=== PATIENT | male | born 1970 | race Caucasian/White ===

== ENCOUNTER 2022-06-05 17:35 | Emergency (ER) | payer MEDICAID, SELFPAY ==
[2022-06-05 17:36] VITALS: BP 166/101; PULSE 99; RESP 14; TEMP 36.8; O2SAT 98; BMI 35.0
--- NOTE | 2022-06-05 18:03 | EDS_ITS ---
HPI History of Present Illness Chief Complaint: Lower Extremity Injury Detail of Chief Complaint: Atraumatic right and left great toe pain Informant: patient Occured/Mechanism Comment: Patient was diagnosed with gout. He had an intra-articular injection of his MTP joint by podiatry. He was seen on Thursday. Onset/Context/Timing Onset: Today (Left toe) and Days (Right toe) Timing: Continuous Quality of Pain: Dull, Aching and Throbbing Location: MTP joint right and left great toe Current Severity: Moderate Maximum Severity: Severe Worsened by: Putting on his shoe, walking, movement Relieved by: Nothing Associated Symptoms Associated Symptoms: Negative for Parasthesia, Weakness or Loss of Funtion Narrative Narrative: Patient is a 52-year-old male who presents with increased right great toe pain and new onset left great toe pain. He was diagnosed earlier this week with gout. He denies history of diabetes however his last A1c was 7.3. Review of prior records indicates he has diabetes with elevated blood sugar. He denies fever, chills night sweats. He is not on a thiazide diuretic. Patient states he wishes to treat his diabetes by diet control. Tetanus Immunization: 5-10 years Prior similar symptoms: Yes Recent Illness/Hospitalization: Yes PFSH PFSH Home Medications prednisone 20 mg tablet 60 mg PO DAILY #15 TABLETS 06/05/22 [Rx Last Taken U nknown] Allergy/AdvReac Type Severity Reaction Status Date / Time No Known Allergies Allergy Verified 06/05/22 17:36 Social History (Updated 06/05/22 @ 18:[address] Molina Underwood MD) household members: none Smoking Status: Never smoker substance use type: does not use ROS ROS ED Constitutional Constitutional ED: Denies chills, fever(s), subjective, sweats or weight loss Musculoskeletal Musculoskeletal: Reports other Details: Right and left great toe pain ; Denies arthralgias, back pain, myalgias or neck pain Integumentary Denies abscess, Abrasions or rash Neurologic Neurologic: Denies paresthesias or weakness Hematologic/Lymphatic Hematologic/Lymphatic: Denies easy bleeding or easy bruising EXAM Physical Exam Const Vital Signs: 06/05/22 17:36 Temperature 98.2 F Temperature Source Temporal Pulse Rate 99 Respiratory Rate 14 Blood Pressure 166/101 H Blood Pressure Mean 122 Pulse Ox 98 Oxygen Delivery Method Room Air Positive well nourished, well developed, obese and unkempt General Appearance ED: unkempt and well developed; Negative for NAD Nutritional Appearance: obese HEENT Reports moist mucous membranes normocephalic and atraumatic Eyes PERRL Eyes Narrative: Extract muscle intact. Sclera is anicteric. Neck full ROM and supple Resp normal respiratory effort Cardio regular rate and regular rhythm Extremity Negative for normal to inspection Extremity Narrative: There is redness and swelling of the right and left great toe consistent with gout. There is hair on his toes. Capillary fill is normal. DP and PT pulse are palpable. He has no hyperesthesia. Neuro oriented x3, CN's II-XII intact bilaterally, moves all extremities and no se nsory deficits noted Sensorium / Orientation: alert Motor Exam: strength 5/5 throughout Psych mental status grossly normal Appearance: unkempt Skin no wounds Lesions: no lesions MDM MDM MDM Narrative Medical decision making narrative: Patient's history and physical exam is consistent with gout. He has pain with passive range of motion. He has pain to light touch. Since renal function is normal he was treated with IV Toradol and morphine. He was reassessed at 1824. He reports marked improvement. He was discharged to home with prescription for prednisone. Discharge Plan Triage Chief Complaint: Lower Extremity Injury ED Provider: Molina Underwood Dx/Rx/DC Orders Clinical Impression: Gouty arthritis of right great toe, Gouty arthritis of left great toe Instructions: ED Gout, ED Hyperglycemia New Susp Diabetes, ED Gout Diet Prescriptions: New prednisone 20 mg tablet 60 mg PO DAILY Qty: 15 0RF Primary Care Provider: Care Physician,No Primary Referrals: Care Physician,No Primary [Primary Care Provider] - Activity Restrictions/Additional Instructions: 1. Follow-up with your primary care doctor. You will need further testing and treatment for your elevated blood sugar
[2022-06-05] MEDS: Morphine 4 MG/ML Syringe IV (18:18)
[2022-06-05] MEDS: Ketorolac 15 MG/ML Vial IV (18:19)
--- NOTE | 2022-06-05 18:25 | EDS_ITS ---
HPI History of Present Illness Chief Complaint: Lower Extremity Injury Detail of Chief Complaint: Back pain radiating down posterior left leg Informant: patient Onset/Context/Timing Onset: Days (Onset 4 to 5 days ago) Context: Sudden Onset Injury: lifting, twisting, bending, direct trauma, assault and repetitive motion Timing: Continuous and Waxes and wanes Quality: Dull and Aching Location: Lumbar, Buttock and Left Leg Current Severity: Moderate Maximum Severity: Severe Worsened by: improves with Movement, Ambulation, Bending and Lifting; worse with Night time pain Relieved by: Nothing Associated Symptoms Associated Symptoms: Radiation to Left Leg and - (He denies saddle paresthesia or anesthesia. He denies foot drop. He denies buckling of his knees going up or down the 2 steps to get into his residence.); Negative for Numbness, Tingling, Radiation to Right Leg, Fever, Abdominal Pain, Dysuria, Unable to Ambulate, Unable to Transfer, Urinary Retention, Urinary Incontinence, Constipation or Fecal Incontinence Narrative Narrative: Patient is a 52-year-old male who presents with left lower back pain that radia arleen to his buttocks and down the posterior aspect of his left lower extremity to his foot. He describes it as a burning sensation. He denies history of diabetes. He denies history of PAD. He denies history of neuropathy. He denies bowel bladder dysfunction. He denies foot drop. He denies buckling of his knees. He denies fever, chills night sweats. He denies weight gain or weight loss. There is no history of trauma per Prior similar symptoms: No Recent Illness/Hospitalization: No PFSH PFSH Medical History no medical history no medical history Home Medications naproxen 500 mg tablet 500 mg PO BID #14 tabs 06/05/22 [Rx Last Taken Unknown] oxycodone-acetaminophen 5 mg-325 mg tablet 1 tab PO Q6H PRN PRN pain 5 days #20 TABLETS 06/05/22 [Rx Last Taken Unknown] Allergy/AdvReac Type Severity Reaction Status Date / Time No Known Allergies Allergy Verified 06/05/22 17:36 Social History (Updated 06/05/22 @ 18:[address] Molina Underwood MD) household members: none Smoking Status: Never smoker substance use type: does not use ROS ROS ED Constitutional Constitutional ED: Denies chills, fever(s), subjective, sweats or weight loss Eyes Eyes: Denies blurry vision or change in vision ENT ENT ED: Denies ear pain, rhinorrhea or sore throat Cardiovascular Cardiovascular: Denies chest pain or palpitations Respiratory/Chest Respiratory/Chest: Denies dyspnea or dyspnea on exertion Gastrointestinal Gastrointestinal: Denies abdominal pain, constipation, diarrhea, nausea or vomiting Genitourinary Genitourinary ED: Denies dysuria, hematuria or urinary frequency Musculoskeletal Musculoskeletal: Reports back pain; Denies arthralgias, myalgias or neck pain Neurologic Neurologic: Denies headache(s), paresthesias or weakness Hematologic/Lymphatic Hematologic/Lymphatic: Denies easy bleeding or easy bruising EXAM Physical Exam Const Vital Signs: 06/05/22 17:36 Temperature 98.2 F Temperature Source Temporal Pulse Rate 99 Respiratory Rate 14 Blood Pressure 166/101 H Blood Pressure Mean 122 Pulse Ox 98 Oxygen Delivery Method Room Air Positive well nourished, well developed and obese Constitutional Narrative: Patient appears uncomfortable. He grimaces getting into bed. General Appearance ED: well developed; Negative for NAD Nutritional Appearance: obese HEENT Reports moist mucous membranes HEENT Narrative: Head is atraumatic no cephalic. Ears normal. Nares patent. Mucosa moist. Eyes PERRL and EOMs intact bilaterally General Eye ED: Negative for pale conjunctiva or scleral icterus Neck no lymphadenopathy, supple and no JVD Resp normal respiratory effort and clear to auscultation bilaterally Cardio regular rate, regular rhythm, S1 normal heart sound and S2 normal heart sound GI normal to inspection, nondistended, normoactive bowel sounds, soft to palpation, non-tender, non-distended and no masses GI Narrative: There is no palpable pulsatile mass. Back/Spine normal to inspection and no thoracic nor lumbar tenderness Back/Spine Narrative: EHLs intact. 5/5 strength with plantar and dorsiflexion of the foot. Once patient's pain is under better control we will have him walk and perform 1 legged squat. General Back: Negative for CVA tenderness Cervical Spine: Negative for cervical spine tenderness Thoracic Spine / Upper Back: Negative for paraspinal muscle tenderness Lumbar Spine / Lower Back: ROM limited and straight leg raise positive - left at 40 degrees (Patient also has a positive bowstring sign. Crossover test is negative.) Extremity normal to inspection and no clubbing, cyanosis or edema General Extremety ED: Negative for edema General Extremity: Negative for edema Neuro oriented x3 and no sensory deficits noted Sensorium / Orientation: alert Motor Exam: strength 5/5 throughout Deep Tendon Reflexes: Rt Patellar (L4): 2+, Lt Patellar (L4): 2+, Rt Ankle (S1): 2+ and Lt Ankle (S1): 2+ Deep Tendon Reflexes Back: Rt Patellar (L4): 2+, Lt Patellar (L4): 2+, Rt Ankle (S1): 2+ and Lt Ankle (S1): 2+ Plantar Reflex: Downgoing: bilateral (There is no clonus.) Psych mental status grossly normal Skin no rashes or lesions noted and no wounds MDM MDM MDM Narrative Medical decision making narrative: History and physical exam is consistent with sciatica on the left. We will treat his pain and reassess. Since there is no history of trauma and no constitutional symptoms imaging is not required at this time nor is blood work. Patient was reassessed at 1855. He is able to walk on his heels and toes. He is able to perform a 1 legged squat with no weakness. Patient reports feeling better. He is moving much more freely. Discharge Plan Triage Chief Complaint: Lower Extremity Injury ED Provider: Molina Underwood Dx/Rx/DC Orders Clinical Impression: Acute left-sided low back pain with left-sided sciatica Instructions: ED Sciatica Prescriptions: New oxycodone-acetaminophen [oxycodone-acetaminophen] 5-325 mg tablet 1 tab PO Q6H PRN PRN (Reason: pain) 5 Days Qty: 20 0RF naproxen 500 mg tablet 500 mg PO BID Qty: 14 0RF Primary Care Provider: Care Physician,No Primary Referrals: Chandni Gee [NON-STAFF] - 3-5 Days if not improving Care Physician,No Primary [Primary Care Provider] - Activity Restrictions/Additional Instructions: 1. If you are unable to urinate or have loss of bowel control return to the emergency department immediately 2. If you are dragging your left foot or leg return to the emergency department Disposition Disposition: Home, Self Care
== END 2022-06-05 19:12 | disposition home or self-care (01) ==
PROVIDERS: Emergency Provider Emergency Medicine; Visit Provider Emergency Medicine
DX: M54.42 Lumbago with sciatica, left side (principal); E66.9 Obesity, unspecified; Z68.35 Body mass index [BMI] 35.0-35.9, adult
CPT/HCPCS: 96374; 96375; 99282; A4216